=== PATIENT | female | born 1995 | race American Indian/Alaskan Native ===

== ENCOUNTER 2017-10-27 16:03 | Emergency (ER) | payer MEDICAID ==
[2017-10-27] MEDS ORDERED: TYLENOL PO ONE (17:04)
[2017-10-27 20:05] VITALS: BP 103/60
--- NOTE | 2017-10-27 20:06 | Emergency Department Report ---
HPI - General Chief Complaint: Upper Respiratory Infection Time Seen by Provider: 10/27/17 19:40 - HPI HPI: Patient here complaining of cough, fever chills starting yesterday. Reports some nausea but no vomiting. Denies any abdominal or back pain. She reports that she is achy all over. Pain is 3 out of 10 comes and goes. Denies any shortness of breath or chest pain. She says she's been drinking fluids and she took [id number] medication but it is not helping. Denies any neck pain or stiffness. Reports that he she has some sore throat with coughing. Nothing makes pain better and nothing makes it worse. ED Past Medical Hx - Past Medical History Previous Medical History?: Yes Hx Asthma: Yes Additional medical history: abnormal vaginal bleeding/menstrual cycles - Surgical History Past Surgical History?: No Hx Coronary Stent: No Hx Open Heart Surgery: No Hx Pacemaker: No Hx Internal Defibrillator: No Hx Cholecystectomy: No Hx Appendectomy: No Hx Breast Surgery: No - Family History Family history: hypertension - Social History Smoking Status: Never Smoker Substance Use Type: None - Medications Home Medications: Home Medications Medication Instructions Recorded Confirmed Last Taken Type Ciprofloxacin HCl [Ciprofloxacin 500 mg PO Q12H #20 tab 02/01/14 Unknown Rx TAB] Fluconazole [Diflucan] 150 mg PO QDAY #1 tablet 04/21/14 Unknown Rx Nitrofurantoin Cascade/M-Cryst 100 mg PO Q12HR #14 capsule 04/21/14 Unknown Rx [Macrobid] metroNIDAZOLE [Flagyl] 500 mg PO BID #14 tablet 04/21/14 Unknown Rx Nitrofurantoin Cascade/M-Cryst 100 mg PO Q12HR #20 capsule 07/17/15 Unknown Rx [Macrobid CAP] metroNIDAZOLE 0.75% [Vandazole 1 applicator VG QHS #5 tube 07/17/15 Unknown Rx 0.75% VAGINAL] Sulfamethoxazole/Trimethoprim 1 each PO BID #14 tablet 06/23/16 Unknown Rx [Bactrim DS TAB] metroNIDAZOLE [Flagyl] 500 mg PO Q12HR #14 tab 06/23/16 Unknown Rx traMADol [Ultram] 50 mg PO Q6HR PRN #10 tablet 06/23/16 Unknown Rx Ibuprofen [Motrin] 600 mg PO Q8H PRN 5 Days #15 tablet 10/27/17 Unknown Rx Ondansetron [Zofran Odt] 4 mg PO Q8HR PRN 7 Days #21 10/27/17 Unknown Rx tab.rapdis Oseltamivir [Tamiflu] 75 mg PO BID 5 Days #10 cap 10/27/17 Unknown Rx guaiFENesin/CODEINE [Robitussin AC] 10 ml PO Q8H PRN 5 Days #150 10/27/17 Unknown Rx oral.liqd ED Review of Systems ROS: Stated complaint: FLU LIKE SYMPTOMS Other details as noted in HPI Comment: All other systems reviewed and negative Constitutional: fever Eyes: denies: eye pain, eye discharge ENT: throat pain, congestion. denies: ear pain, epistaxis Respiratory: cough. denies: orthopnea, shortness of breath, SOB with exertion, SOB at rest, stridor, wheezing Cardiovascular: denies: chest pain, palpitations, dyspnea on exertion, orthopnea , edema, syncope, paroxysmal nocturnal dyspnea Gastrointestinal: nausea. denies: abdominal pain, vomiting, diarrhea, constipation, hematemesis, melena, hematochezia Genitourinary: denies: urgency, dysuria, frequency, hematuria, discharge, abnormal menses Musculoskeletal: myalgia. denies: back pain, joint swelling, arthralgia Skin: denies: rash Neurological: denies: headache, weakness, numbness, paresthesias, confusion, abnormal gait, vertigo Physical Exam - Physical Exam Vital Signs: Vital Signs 10/27/17 10/27/17 16:50 20:04 Temperature 101 F H 99 F Pulse Rate 114 H 89 Respiratory 18 19 Rate Blood Pressure 120/83 Blood Pressure 103/60 [Left] O2 Sat by Pulse 100 97 Oximetry General: This is a 21-year-old female well-nourished well-developed and nontoxic in appearance. Physical Exam: Head: Normocephalic, atraumatic, no abrasion, no bruising and no contusion. Eyes: Biateral pupils equal and reactive to light, bilateral EOM intact.. Bilateral conjunctival and sclera without injection, normal accommodation. No nystagmus Mouth: Moist, no pharyngeal exudate or erythema. No peritonsillar abscesses. Uvula is midline and oral airways patent. Ears: TM congested without erythema. Bilateral EAC without any redness swelling or drainage. No mastoid bone tenderness Nose: Brennan. nasal turbinates congested with erythema and clear drainage. Maxillary and frontal sinuses none on tender to palpate. Neck: Supple, No Cervical adenopathy, full range of motion and no C-spine tenderness. No swelling or tracheal deviation normal reflexes Cardiovascular: S1, S2. Tachycardic ,Regular rhythm. No murmur. Capillary refill is less then 3 seconds. Lungs: Clear to auscultate bilaterall tachycardic y. No rhonchi, wheezes or rales. No chest wall tenderness. No chest contusion. No bruising to chest. Dry cough Abdomen: Non-tender to palpate in all quadrants, no guarding or rebound tenderness, positive bowel sounds in all quadrants. No CVA tenderness. No hernia, bruit or mass. No rigidity or distention. Extremities: No clubbing, cyanosis or edema. +2 pulses. No neurovascular compromise Skin: Clean, dry and intact. No rash or lesions. Neurological: GCS at 15, Pt is alert and oriented 3 speech is clear. Bilateral hand accounting representative strong and equal. Normal gait. Negative Romberg and no pronator drift. Normal Reflexes. No motor or sensory deficit Back: No vertebral tenderness, no paraspinal tenderness. The bend over and touch his toes without any difficulties. Ambulates without any difficulties. Psych: Normal mood and behavior ED Course Vital Signs 10/27/17 10/27/17 16:50 20:04 Temperature 101 F H 99 F Pulse Rate 114 H 89 Respiratory 18 19 Rate Blood Pressure 120/83 Blood Pressure 103/60 [Left] O2 Sat by Pulse 100 97 Oximetry - Reevaluation(s) Reevaluation #1: 10/27/17 22:09 Patient given Tylenol 975 mg in emergency room for fever and her temperature is down to 99. Heart rate is better patient orally hydrate in emergency room and tolerated fluids well ED Medical Decision Making - Lab Data Influenza A and B negative but patient is exposed to influenza from her child - Medical Decision Making ED course: Patient here with flulike symptoms this pain ongoing 1 day. Patient was given Tylenol 975 mg and emergency room and orally hydrated. Her vital signs and temperature is better. She has no episode of nausea or vomiting. Patient is breast-feeding and wants to know what she can take . I discussed with patient that she has viral syndrome which is a virus just like both influenza virus but she is negative for influenza A and B. I told her it had it safe for her to take Tamiflu while she is breast-feeding and she chose to do so but she did not want her baby to half Tamiflu. Patient discharged home with prescription for Tamiflu, guaifenesin with codeine, Motrin and Zofran and to follow up with her primary care physician on 10/30/2016. Patient discharged home able to tolerate oral liquids and says she felt better. I told her to increase her fluid intake Critical care attestation.: If time is entered above; I have spent that time in minutes in the direct care of this critically ill patient, excluding procedure time. ED Disposition Clinical Impression: URI with cough and congestion, Fever and chills, Body aches, Nausea alone, Exposure to influenza Pharyngitis Qualifiers: Pharyngitis/tonsillitis etiology: unspecified etiology Qualified Code(s): J02.9 - Acute pharyngitis, unspecified Disposition: TO HOME OR SELFCARE Is pt being admited?: No Does the pt Need Aspirin: No Condition: Stable Instructions: Oseltamivir (By mouth), Pharyngitis (ED), Fever in Adults (ED), Influenza (ED), Acute Nausea and Vomiting (ED), Acute Cough (ED) Additional Instructions: Please increase her fluid intake to 2-3 L of water and Gatorade per day to prevent dehydration and keep temperature down Motrin as prescribed for fever and bodyaches Take Tamiflu but see discharge instruction on side effects. Respiratory 72 hours Your flu test came back negative for influenza A and influenza B .but became is you were exposed to influenza A and B from your child with it is recommended that you take Tamiflu. Please do not drive or operate heavy machinery while taking Codeine cough medicine as this medication causes drowsiness Prescriptions: guaiFENesin/CODEINE [Robitussin AC] 10 ml PO Q8H PRN 5 Days #150 oral.liqd PRN Reason: Cough Ibuprofen [Motrin] 600 mg PO Q8H PRN 5 Days #15 tablet PRN Reason: Pain Ondansetron [Zofran Odt] 4 mg PO Q8HR PRN 7 Days #21 tab.rapdis PRN Reason: Nausea Oseltamivir [Tamiflu] 75 mg PO BID 5 Days #10 cap Referrals: your, primary care physician [Other] - 10/30/17 [facility] [Outside] - 10/30/17 Forms: Work/School Release Form(ED)
== END 2017-10-27 23:19 | disposition home or self-care (01) ==
LOC: ED 16:03
DX: J02.9 Acute pharyngitis, unspecified (principal); R11.0 Nausea; J45.909 Unspecified asthma, uncomplicated
CPT/HCPCS: 87400; 99282